=== PATIENT | male | born 1955 | race African-American/Black ===

== ENCOUNTER 2016-10-23 08:47 | Day surgery (SDC) | payer OTHER ==
[~2016-10-23 08:47] MED LIST: DIPHENHYDRAMINE HCL 50 MG/ML VIAL ONE; EPINEPHRINE INJ 1 MG/10 ML DISP.SYRIN ONE; FENTANYL CITRATE INJ/PF 100 MCG/2 ML AMPUL ONE; FLUMAZENIL INJ 0.5 MG/5 ML VIAL IV ONE; GLUCAGON,HUMAN RECOMB 1 MG INJ ONE; NALOXONE HCL INJ/PF 0.4 MG/1 ML SDV ONE; ONDANSETRON HCL INJ/PF 4 MG/2 ML SDV ONE
[2016-10-23] MEDS: MIDAZOLAM 2 MG/2 ML INJ ONE ×2 (09:48→09:52)
--- NOTE | 2016-10-23 10:11 | Operative Report ---
Operative Report DATE OF SURGERY: 10/23/16 Operative Report: The risks, benefits and alternatives of the procedure including risks of bleeding, perforation requiring surgery are explained to the patient detail and informed consent was obtained. Patient is placed in the left, lateral decubital position. Timeout was called. Conscious sedation medications are provided. A rectal examination was done which did not reveal any masses, tears or fissures. An Olympus videoscope was inserted into the patient's rectum. The scope was then carefully guided all the way to the cecum. The cecum was identified by the usual anatomical landmarks including the ileocecal valve as well as the appendiceal office. Photodocumentation was obtained. Prep was good. Scope was then sequentially pulled back. The rest segments of the colon including the ascending colon, hepatic flexure, transverse colon, splenic flexure, descending colon and finally to the rectosigmoid portions of the colon. Retroflexion maneuver was performed. PREOPERATIVE DIAGNOSIS: Follow-up on colitis POSTOPERATIVE DIAGNOSIS: Right side colon biopsy confirmation of resolution. Small polyp in the sigmoid biopsy forceps. No AVMs or diverticulosis seen. Internal hemorrhoids OPERATION: Colonoscopy with biopsy SURGEON: KANU BROCK ANESTHESIA: Moderate Sedation - 4 mg of Versed, 50 mcg fentanyl. Conscious sedation monitoring time 30 minutes. TISSUE REMOVED OR ALTERED: Specimens as indicated. COMPLICATIONS: None. ESTIMATED BLOOD LOSS: None. INTRAOPERATIVE FINDINGS: As described above. PROCEDURE: Patient tolerated procedure well. No immediate postprocedure complications are noted. Patient discharged in good condition. Discharge date 10/23/2016. Discharge diet: Regular. Discharge activity: Regular. 2-3 week follow-up to discuss findings. Patient is instructed to call the office or proceed to the emergency room should there be any further problems or questions. We will wait on biopsies.
[2016-10-23 11:13] VITALS: BP 107/61
== END 2016-10-23 11:27 | disposition home or self-care (01) ==
LOC: END 08:47
PROVIDERS: ATTEND Internal Medicine Gastroenterology
PROC: 0DBF8ZX Excision of Right Large Intestine, Via Natural or Artificial Opening Endoscopic, Diagnostic (ICD-10-PCS; 2016-10-23)
PROC: 0DBN8ZX Excision of Sigmoid Colon, Via Natural or Artificial Opening Endoscopic, Diagnostic (ICD-10-PCS; principal; 2016-10-23 09:30)
DX: K63.5 Polyp of colon (principal); K64.8 Other hemorrhoids; K62.5 Hemorrhage of anus and rectum; Z09 Encounter for follow-up examination after completed treatment for conditions other than malignant neoplasm; K21.9 Gastro-esophageal reflux disease without esophagitis; N40.0 Benign prostatic hyperplasia without lower urinary tract symptoms; E78.2 Mixed hyperlipidemia; I10 Essential (primary) hypertension; M47.9 Spondylosis, unspecified; F17.210 Nicotine dependence, cigarettes, uncomplicated; Z87.19 Personal history of other diseases of the digestive system; Z79.82 Long term (current) use of aspirin; Z79.899 Other long term (current) drug therapy
CPT/HCPCS: 45380; 88305 ×2; J2250; J3010; J0171; J1200; J1610; J2310; J2405; J3490

== ENCOUNTER → 2016-12-16 | Outpatient (CLI) | payer OTHER ==
[2016-12-17 08:44] LABS: CHOLESTEROL 156.34 mg/dL (0-200); Direct HDL 56 mg/dL (>40); TRIGLYCERIDES 67 mg/dL (<150)
[2016-12-17 08:48] LABS: ALANINE AMINOTRANSFERASE 42 U/L (21-72); ALBUMIN 4.3 g/dL (3.5-5.0); ALKALINE PHOSPHATASE 75 U/L (38-126); ANION GAP 10 (5-19); ASPARTATE AMINO TRANSFERASE 36 U/L (17-59); BILIRUBIN,DIRECT 0.4 mg/dL (0.0-0.4); BILIRUBIN,TOTAL 0.9 mg/dL (0.2-1.3); BLOOD UREA NITROGEN 16 mg/dL (7-20); CALCIUM 9.7 mg/dL (8.4-10.2); CARBON DIOXIDE 25 mmol/L (22-30); CHLORIDE 104 mmol/L (98-107); CREATININE RESULT 1.11 mg/dL (0.52-1.25); GLUCOSE 84 mg/dL (75-110); POTASSIUM 4.5 mmol/L (3.6-5.0); SODIUM 139.4 mmol/L (137-145); TOTAL PROTEIN 7.7 g/dL (6.3-8.2)
[2016-12-17 08:55] LABS: DIRECT LDL 70 mg/dL (<100)
== END ==
LOC: OD 09:22
PROVIDERS: ATTEND Internal Medicine Cardiovascular Disease
DX: Z79.899 Other long term (current) drug therapy (principal); E78.00 Pure hypercholesterolemia, unspecified; I10 Essential (primary) hypertension
CPT/HCPCS: 36415; 80048; 80061; 80076

== ENCOUNTER → 2017-04-11 | Outpatient (CLI) | payer OTHER ==
--- NOTE | 2017-04-11 12:37 | RADIOLOGY REPORT (SQ) ---
EXAM DESCRIPTION: HIP RIGHT AP/LATERAL COMPLETED DATE/TIME: 04/11/2017 9:02 am REASON FOR STUDY: OTHER INTERVERTEBRAL DISC DEGENERATION, LUMBOSACRAL REGION,RT HIP PAIN M25.551 PA IN IN RIGHT HIP M51.37 OTHER INTERVERTEBRAL DISC DEGENERATION, LUMBOSACRAL R COMPARISON: None. NUMBER OF VIEWS: Two views. TECHNIQUE: AP pelvis and additional frog-leg view of the right hip. LIMITATIONS: None. FINDINGS: MINERALIZATION: Normal. RIGHT HIP: No fracture or dislocation. No worrisome bone lesions. LEFT HIP: No fracture or dislocation. No worrisome bone lesions. PUBIS AND ISCHIUM: No fracture. PELVIS: No fracture. SACRUM: No fracture or dislocation. No worrisome bone lesions. LOWER LUMBAR SPINE: No fracture or dislocation. No worrisome bone lesions. No significant disc disea se. SOFT TISSUES: No findings. OTHER: No other significant finding. IMPRESSION: NEGATIVE STUDY OF THE RIGHT HIP. NO RADIOGRAPHIC EVIDENCE OF ACUTE INJURY. TECHNICAL DOCUMENTATION: JOB ID: [id number] [employer]- All Rights Reserved
--- NOTE | 2017-04-11 12:38 | RADIOLOGY REPORT (SQ) ---
EXAM DESCRIPTION: LUMBAR SPINE COMPLETE COMPLETED DATE/TIME: 04/11/2017 9:02 am REASON FOR STUDY: OTHER INTERVERTEBRAL DISC DEGENERATION, LUMBOSACRAL REGION,RT HIP PAIN M25.551 PA IN IN RIGHT HIP M51.37 OTHER INTERVERTEBRAL DISC DEGENERATION, LUMBOSACRAL R COMPARISON: None. NUMBER OF VIEWS: Five views including obliques. TECHNIQUE: AP, lateral, oblique, and sacral radiographic images acquired of the lumbar spine. LIMITATIONS: None. FINDINGS: MINERALIZATION: Normal. SEGMENTATION: Normal. No transitional anatomy. ALIGNMENT: Normal. VERTEBRAE: Maintained height. No fracture or worrisome bone lesion. DISCS: There is narrowing of the L5-S1 disc space and there is mild narrowing at L4-5. POSTERIOR ELEMENTS: Pedicles and facets are intact. No pars defect or posterior arch defects. HARDWARE: None in the spine. PARASPINAL SOFT TISSUES: Normal. PELVIS: Intact as visualized. No fractures or worrisome bone lesions. SI joints intact. OTHER: No other significant finding. IMPRESSION: Degenerative disc changes as described. TECHNICAL DOCUMENTATION: JOB ID: [id number]- All Rights Reserved
== END ==
LOC: OD 08:27
PROVIDERS: ATTEND Family Medicine
DX: M25.551 Pain in right hip (principal); M51.37 Other intervertebral disc degeneration, lumbosacral region
CPT/HCPCS: 72110

== ENCOUNTER → 2017-08-04 | Outpatient (CLI) | payer OTHER ==
[2017-08-04 09:32] LABS: ANION GAP 8 (5-19); BLOOD UREA NITROGEN 12 mg/dL (7-20); CALCIUM 9.8 mg/dL (8.4-10.2); CARBON DIOXIDE 30 mmol/L (22-30); CHLORIDE 104 mmol/L (98-107); CHOLESTEROL 160.45 mg/dL (0-200); GLUCOSE 96 mg/dL (75-110); SODIUM 141.9 mmol/L (137-145); TRIGLYCERIDES 79 mg/dL (<150)
[2017-08-04 09:36] LABS: ALANINE AMINOTRANSFERASE 36 U/L (21-72); ALBUMIN 4.2 g/dL (3.5-5.0); ALKALINE PHOSPHATASE 66 U/L (38-126); ASPARTATE AMINO TRANSFERASE 48 U/L (17-59); BILIRUBIN,DIRECT 0.1 mg/dL (0.0-0.4); BILIRUBIN,TOTAL 0.5 mg/dL (0.2-1.3); TOTAL PROTEIN 7.1 g/dL (6.3-8.2)
[2017-08-04 09:42] LABS: DIRECT LDL 75 mg/dL (<100)
== END ==
LOC: OD 07:26
PROVIDERS: ATTEND Internal Medicine Cardiovascular Disease
DX: I10 Essential (primary) hypertension (principal); E78.00 Pure hypercholesterolemia, unspecified
CPT/HCPCS: 36415; 80048; 80061; 80076

== ENCOUNTER → 2018-09-29 | Outpatient (CLI) | payer OTHER ==
[2018-09-29 12:51] LABS: ALANINE AMINOTRANSFERASE 36 U/L (21-72); ALBUMIN 4.2 g/dL (3.5-5.0); ALKALINE PHOSPHATASE 74 U/L (38-126); ANION GAP 11 (5-19); ASPARTATE AMINO TRANSFERASE 37 U/L (17-59); BILIRUBIN,DIRECT 0.3 mg/dL (0.0-0.4); BILIRUBIN,TOTAL 0.6 mg/dL (0.2-1.3); BLOOD UREA NITROGEN 15 mg/dL (7-20); CALCIUM 9.7 mg/dL (8.4-10.2); CARBON DIOXIDE 25 mmol/L (22-30); CHLORIDE 108 mmol/L (98-107); CHOLESTEROL 149.11 mg/dL (0-200); GLUCOSE 93 mg/dL (75-110); POTASSIUM 4.2 mmol/L (3.6-5.0); SODIUM 143.7 mmol/L (137-145); TOTAL PROTEIN 7.5 g/dL (6.3-8.2); TRIGLYCERIDES 57 mg/dL (<150)
[2018-09-29 13:02] LABS: DIRECT LDL 75 mg/dL (<100)
== END ==
LOC: OD 11:07
PROVIDERS: ATTEND Internal Medicine Cardiovascular Disease
DX: E78.00 Pure hypercholesterolemia, unspecified (principal); I10 Essential (primary) hypertension; Z79.899 Other long term (current) drug therapy
CPT/HCPCS: 36415; 80048; 80061; 80076

== ENCOUNTER → 2018-11-16 | Outpatient (CLI) | payer OTHER ==
--- NOTE | 2018-11-16 14:20 | RADIOLOGY REPORT (SQ) ---
EXAM DESCRIPTION: NM HIDA SCAN WITH CCK COMPLETED DATE/TIME: 11/16/2018 9:42 am REASON FOR STUDY: RUQ ABD PAIN (R10.11) R10.11 RIGHT UPPER QUADRANT PAIN COMPARISON: None. RADIONUCLIDE AND DOSE: DOSAGE RADIONUCLIDE: 5.3 millicuries Tc99m Mebrofenin. DOSAGE CCK: 1.8 micrograms. DOSAGE MORPHINE: Not required. The route of agent administration: Intravenous TECHNIQUE: Serial imaging right upper quadrant up to 60 minutes following injection of radionuclide. CCK injected after gallbladder visualized. LIMITATIONS: None. FINDINGS: LIVER: Normal visualization without areas of photopenia. INTRA AND EXTRAHEPATIC BILE DUCTS: Normal accumulation of activity. GALLBLADDER: Normal visualization. Calculated Ejection Fraction of 5%. Below the normal value of 35% or greater. PHYSICAL RESPONSE: Patients presenting complaint was not reproduced. OTHER: No other significant finding. IMPRESSION: LOW GALLBLADDER EJECTION FRACTION. EVIDENCE FOR BILIARY DYSKINESIS. NO CYSTIC OR COMMO N DUCT OBSTRUCTION. TECHNICAL DOCUMENTATION: JOB ID: [id number] [employer]- All Rights Reserved Reading location - IP/workstation name: [email or web address]
== END ==
LOC: RAD 07:15
PROVIDERS: ATTEND Family Medicine
DX: R10.11 Right upper quadrant pain (principal)
CPT/HCPCS: 78227; J2805; A9537; Q9969

== ENCOUNTER → 2018-12-18 | Outpatient (CLI) | payer OTHER ==
--- NOTE | 2018-12-18 16:49 | RADIOLOGY REPORT (SQ) ---
EXAM DESCRIPTION: CHEST PA/LATERAL COMPLETED DATE/TIME: 12/18/2018 4:36 pm REASON FOR STUDY: THORACIC RADICULOPATHY; COMPARISON: 09/10/2015. EXAM PARAMETERS: NUMBER OF VIEWS: two views TECHNIQUE: Digital Frontal and Lateral radiographic views of the chest acquired. RADIATION DOSE: NA LIMITATIONS: none FINDINGS: LUNGS AND PLEURA: No opacities, masses or pneumothorax. No pleural effusion. MEDIASTINUM AND HILAR STRUCTURES: No masses or contour abnormalities. HEART AND VASCULAR STRUCTURES: Heart normal size. No evidence for failure. BONES: No acute findings. HARDWARE: None in the chest. OTHER: No other significant finding. IMPRESSION: NO SIGNIFICANT RADIOGRAPHIC FINDING IN THE CHEST. TECHNICAL DOCUMENTATION: JOB ID: [id number] [employer]- All Rights Reserved Reading location - IP/workstation name: [email or web address]
--- NOTE | 2018-12-18 16:49 | RADIOLOGY REPORT (SQ) ---
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 NUMBER OF VIEWS: Two views. TECHNIQUE: AP and lateral radiographic images acquired of the thoracic spine. LIMITATIONS: None. FINDINGS: MINERALIZATION: Normal. ALIGNMENT: Normal. No scoliosis. VERTEBRAE: No fracture or bone lesion. Maintained height, normal segmentation. DISCS: No significant loss of height or significant narrowing. No large osteophytes. HARDWARE: None in the spine. MEDIASTINUM AND SOFT TISSUES: Normal heart size and aortic contour. No soft tissue abnormality. VISUALIZED LUNG PATTERSON: Clear. OTHER: No other significant finding. IMPRESSION: NO SIGNIFICANT RADIOGRAPHIC FINDING IN THE THORACIC SPINE. TECHNICAL DOCUMENTATION: JOB ID: [id number] [employer]- All Rights Reserved Reading location - IP/workstation name: [email or web address]
== END ==
LOC: OD 16:08
PROVIDERS: ATTEND Family Medicine
DX: M54.14 Radiculopathy, thoracic region (principal)
CPT/HCPCS: 71046; 72070

== ENCOUNTER 2018-12-24 11:42 | Day surgery (SDC) | payer OTHER ==
[2018-12-24] MEDS ORDERED: ONDANSETRON HCL INJ/PF 4 MG/2 ML SDV ONE (11:58)
[2018-12-24] MEDS ORDERED: DIPHENHYDRAMINE HCL 50 MG/ML VIAL ONE (11:58)
[2018-12-24] MEDS ORDERED: NALOXONE HCL INJ/PF 0.4 MG/1 ML SDV ONE (11:58)
[2018-12-24] MEDS ORDERED: GLUCAGON,HUMAN RECOMB 1 MG INJ ONE (11:59)
[2018-12-24] MEDS ORDERED: FLUMAZENIL INJ 0.5 MG/5 ML VIAL ONE (11:59)
[2018-12-24] MEDS ORDERED: EPINEPHRINE INJ 1 MG/10 ML DISP.SYRIN ONE (11:59)
[2018-12-24] MEDS: MIDAZOLAM 2 MG/2 ML INJ ONE ×2 (12:22→12:34)
[2018-12-24] MEDS: FENTANYL CITRATE INJ/PF 100 MCG/2 ML AMPUL ONE ×2 (12:24→12:29)
--- NOTE | 2018-12-24 12:47 | Operative Report ---
Operative Report DATE OF SURGERY: 12/24/18 Operative Report: The risks, benefits and alternatives of the procedure including the risk of bleeding, perforation requiring surgery have been explained to the patient in detail and informed consent has been obtained. Patient is taken back to the endoscopy suite and placed in a left, lateral decubital position. Timeout was called. Propofol medication is administered. Rectal examination is done which did not reveal any masses, tears or fissures. An Olympus videoscope was introduced into the patient's rectum. The scope was then carefully advanced all the way to the cecum. The cecum was identified by the usual anatomical landmarks of the ileocecal valve as well as the appendiceal office. Of note patient does have a somewhat redundant colon. The scope was then sequentially pulled back via the various segments of the colon including the ascending colon, hepatic flexure, transverse colon, splenic flexure, descending colon finding to the rectosigmoid portions of the colon. Retroflexion maneuvers performed. PREOPERATIVE DIAGNOSIS: Change in bowel habits POSTOPERATIVE DIAGNOSIS: Right colon inflammation status post biopsy OPERATION: Colonoscopy with biopsy SURGEON: KANU BROCK ANESTHESIA: Moderate Sedation - 3 mg of Versed, 75 mcg of fentanyl. Conscious sedation monitoring time 30 minutes. TISSUE REMOVED OR ALTERED: As noted above. COMPLICATIONS: None. ESTIMATED BLOOD LOSS: None. INTRAOPERATIVE FINDINGS: As noted above. PROCEDURE: Patient tolerated the procedure well. No immediate postprocedure complications are noted. Patient is discharged in good condition. Discharge date 12/24/2018. Discharge diet: Regular. Discharge activity: Regular. 2 to 3-week follow-up to discuss findings. Patient is instructed to call the office or proceed to the emergency room should there be any further questions. Wait on the pathology.
[2018-12-24 13:37] VITALS: BP 109/73
== END 2018-12-24 13:50 | disposition home or self-care (01) ==
LOC: END 11:42
PROVIDERS: ATTEND Internal Medicine Gastroenterology
DX: K52.9 Noninfective gastroenteritis and colitis, unspecified (principal); K21.9 Gastro-esophageal reflux disease without esophagitis; I10 Essential (primary) hypertension; E78.2 Mixed hyperlipidemia; F17.210 Nicotine dependence, cigarettes, uncomplicated; N40.0 Benign prostatic hyperplasia without lower urinary tract symptoms; Z79.899 Other long term (current) drug therapy
CPT/HCPCS: 88305 ×2; J2250; J3010; J0171; J1200; J1610; J2310; J2405; J3490

== ENCOUNTER → 2019-05-17 | Outpatient (CLI) | payer OTHER ==
[2019-05-17 08:42] LABS: ALBUMIN 4.1 g/dL (3.5-5.0); ALKALINE PHOSPHATASE 70 U/L (38-126); ANION GAP 9 (5-19); ASPARTATE AMINO TRANSFERASE 33 U/L (17-59); BILIRUBIN,DIRECT 0.2 mg/dL (0.0-0.4); BILIRUBIN,TOTAL 0.8 mg/dL (0.2-1.3); BLOOD UREA NITROGEN 13 mg/dL (7-20); CALCIUM 9.4 mg/dL (8.4-10.2); CARBON DIOXIDE 26 mmol/L (22-30); CHLORIDE 107 mmol/L (98-107); CHOLESTEROL 178.47 mg/dL (0-200); GLUCOSE 91 mg/dL (75-110); POTASSIUM 4.1 mmol/L (3.6-5.0); TOTAL PROTEIN 7.6 g/dL (6.3-8.2); TRIGLYCERIDES 68 mg/dL (<150)
[2019-05-17 08:53] LABS: DIRECT LDL 103 mg/dL (<100)
== END ==
LOC: OD 07:12
PROVIDERS: ATTEND Physician Assistant
DX: E78.00 Pure hypercholesterolemia, unspecified (principal); I10 Essential (primary) hypertension; Z79.899 Other long term (current) drug therapy
CPT/HCPCS: 36415; 80048; 80061; 80076

== ENCOUNTER 2019-05-18 01:59 | Emergency (ER) | payer OTHER ==
[2019-05-18 02:32] LABS: ABSOLUTE BASOPHILS # (AUTO) 0.1 10^3/uL (0.0-0.2); ABSOLUTE EOSINOPHILS # (AUTO) 0.2 10^3/uL (0.0-0.6); ABSOLUTE LYMPHOCYTES (AUTO) 2.7 10^3/uL (0.5-4.7); ABSOLUTE NEUT (AUTO) 2.9 10^3/uL (1.7-8.2); BASOPHILS % (AUTO) 1.4 % (0-2); EOSINOPHILS % (AUTO) 2.8 % (0-6); HEMATOCRIT 43.8 % (37.9-51.0); LYMPHOCYTES % (AUTO) 39.4 % (13-45); MEAN CORPUSCULAR HEMOGLOBIN 30.2 pg (27.0-33.4); MEAN CORPUSCULAR HGB CONC 34.2 g/dL (32.0-36.0); MEAN CORPUSCULAR VOLUME 88 fl (80-97); MONOCYTES % (AUTO) 13.9 % (3-13); PLATELET COUNT 234 10^3/uL (150-450); RED BLOOD COUNT 4.97 10^6/uL (4.35-5.55); SEGMENTED NEUTROPHILS % (AUTO) 42.5 % (42-78); TOTAL CELLS COUNTED % (AUTO) 100 %; WHITE BLOOD COUNT 6.9 10^3/uL (4.0-10.5)
[2019-05-18 02:54] LABS: ALBUMIN 4.1 g/dL (3.5-5.0); ALKALINE PHOSPHATASE 69 U/L (38-126); ANION GAP 9 (5-19); ASPARTATE AMINO TRANSFERASE 35 U/L (17-59); BILIRUBIN,DIRECT 0.2 mg/dL (0.0-0.4); BILIRUBIN,TOTAL 0.6 mg/dL (0.2-1.3); BLOOD UREA NITROGEN 16 mg/dL (7-20); CALCIUM 9.6 mg/dL (8.4-10.2); CARBON DIOXIDE 27 mmol/L (22-30); CHLORIDE 105 mmol/L (98-107); GLUCOSE 92 mg/dL (75-110); POTASSIUM 4.2 mmol/L (3.6-5.0); TOTAL PROTEIN 7.7 g/dL (6.3-8.2)
[2019-05-18] MEDS ORDERED: ASPIRIN 81 MG TABLET, CHEWABLE PO ONE (04:39)
[2019-05-18] MEDS ORDERED: FAMOTIDINE 20 MG TABLET PO ONE (04:40)
--- NOTE | 2019-05-18 04:45 | ER Document Report ---
ED General - General Chief Complaint: High Blood Pressure Stated Complaint: CHEST PAIN/BLOOD PRESSURE PROBLEMS,HEADACHE Time Seen by Provider: 05/18/19 04:22 Primary Care Provider: NICOLA MCNALLY DO [Primary Care Provider] - Follow up as needed Mode of Arrival: Ambulatory Information source: Patient Notes: 63-year-old male presented to ED for complaint of chest pain with aching in the arms and legs. He denies any shortness of breath nausea or vomiting. He states he has been having chest pain about once a week for the last several months. His last stress test was in 2017. He does have an appointment with Dr. Jewell on 05/24/2019. TRAVEL OUTSIDE OF THE [place] IN LAST 30 DAYS: No - HPI Onset: Yesterday Onset/Duration: Better Quality of pain: Dull Severity: Mild Pain Level: 1 Associated symptoms: Chest pain, Other - Cramping of arms and legs. denies: Nonproductive cough, Productive cough, Fever, Nausea, Vomiting Exacerbated by: Denies Relieved by: Denies Similar symptoms previously: Yes Recently seen / treated by doctor: Yes - Related Data Allergies/Adverse Reactions: No Known Allergies Allergy (Verified 05/18/19 02:12) Home Medications: micardis, metoprolol, atorvastatin, restasis, telmisartan, nexium, cilais, methocarbamol. Past Medical History - General Information source: Patient - Social History Smoking Status: Never Smoker Frequency of alcohol use: Occasional Drug Abuse: None Lives with: Family Family History: CAD, CVA Patient has suicidal ideation: No Patient has homicidal ideation: No - Past Medical History Cardiac Medical History: Reports: Hx Coronary Artery Disease, Hx Hypercholest erolemia, Hx Hypertension Pulmonary Medical History: Reports: Hx Sleep Apnea EENT Medical History: Reports: None Neurological Medical History: Reports: None Endocrine Medical History: Reports: None Renal/ Medical History: Reports: None Malignancy Medical History: Reports None GI Medical History: Reports: Hx Gastroesophageal Reflux Disease, Hx Colonoscopy, Hx Endoscopy, Other - Gallbladder disease, hemorrhoids Musculoskeletal Medical History: Reports Hx Arthritis, Reports Hx Musculoskeletal Deformity - Back pain, Reports Hx Musculoskeletal Trauma - Right torn meniscus Skin Medical History: Reports None Psychiatric Medical History: Reports: None Traumatic Medical History: Reports: None Infectious Medical History: Reports: None Surgical Hx: Negative Past Surgical History: Reports: None - Immunizations Hx Diphtheria, Pertussis, Tetanus Vaccination: Yes History of Pneumococcal Vaccine: Yes - July 2018 History of Influenza Vaccine for 02/2019 - 07/2019 Season: Yes - March 07, 2019 Review of Systems - Review of Systems Constitutional: No symptoms reported EENT: No symptoms reported Cardiovascular: Chest pain Respiratory: No symptoms reported Gastrointestinal: No symptoms reported Genitourinary: No symptoms reported Male Genitourinary: No symptoms reported Musculoskeletal: No symptoms reported Skin: No symptoms reported Hematologic/Lymphatic: No symptoms reported Neurological/Psychological: No symptoms reported -: Yes All other systems reviewed and negative Physical Exam - Vital signs Vitals: Temp Pulse Resp BP Pulse Ox 98.0 F 72 16 147/90 H 97 05/18/19 02:07 05/18/19 02:07 05/18/19 02:07 05/18/19 02:07 05/18/19 02:07 Interpretation: Normal - General General appearance: Appears well, Alert - HEENT Head: Normocephalic, Atraumatic Eyes: Normal Pupils: PERRL - Respiratory Respiratory status: No respiratory distress Chest status: Nontender Breath sounds: Normal Chest palpation: Normal - Cardiovascular Rhythm: Regular Heart sounds: Normal auscultation Murmur: No - Abdominal Inspection: Normal Distension: No distension Bowel sounds: Normal Tenderness: Nontender Organomegaly: No organomegaly - Back Back: Normal, Nontender - Extremities General upper extremity: Normal inspection, Nontender, Normal color, Normal ROM, Normal temperature General lower extremity: Normal inspection, Nontender, Normal color, Normal ROM, Normal temperature, Normal weight bearing. No: Vianney's sign - Neurological Neuro grossly intact: Yes Cognition: Normal Orientation: AAOx4 [place] Coma Scale Eye Opening: Spontaneous [place] Coma Scale Verbal: Oriented [place] Coma Scale Motor: Obeys Commands Krystle Coma Scale Total: 15 Speech: Normal Motor strength normal: LUE, RUE, LLE, RLE Sensory: Normal - Psychological Associated symptoms: Normal affect, Normal mood - Skin Skin Temperature: Warm Skin Moisture: Dry Skin Color: Normal Course - Re-evaluation Re-evalutation: 05/18/19 08:33 Patient was discharged after he had 2- troponins. He has been seen multiple times for chest pain. He does have cardiac and primary care follow-up. He has a negative stress test in 2017. He has been to the specialist field engineer multiple times for this chest pain and each time his work-up is negative. I have a low suspicion for a cardiac event today. I have structured him to return immediately for any increase in pain. He did not have any chest pain at discharge. - Vital Signs Vital signs: Temp Pulse Resp BP Pulse Ox 98.2 F 58 L 20 130/85 H 98 05/18/19 07:49 05/18/19 07:49 05/18/19 06:59 05/18/19 07:49 05/18/19 07:49 - Laboratory Result Diagrams: 05/18/19 02:15 05/18/19 02:15 Laboratory results interpreted by me: 05/18/19 02:15 [place] % (Auto) 13.9 H - Diagnostic Test Radiology reviewed: Image reviewed, Reports reviewed Discharge - Discharge Clinical Impression: Chest pain Qualifiers: Chest pain type: unspecified Qualified Code(s): R07.9 - Chest pain, unspecified HTN (hypertension) Qualifiers: Hypertension type: unspecified Qualified Code(s): I10 - Essential (primary) hypertension Condition: Stable Disposition: HOME, SELF-CARE Additional Instructions: CHEST PAIN OF UNCLEAR CAUSE: The exact cause of your chest pain isn't clear. Fortunately, there is no evidence of a dangerous medical condition. Further testing may be required to find the source of the pain. Most often, we find that this pain is coming from the chest wall -- the muscles or rib joints in the chest. But chest pain can come from the lung and lung lining, the esophagus, the heart valves or heart lining, and even the stoma ch or gallbladder. Rest. Eat lightly until the pain is gone. We may prescribe medicine for pain and inflammation. You should call the physician immediately if the pain radiates to the shou lder, jaw or arms; if you start to run a fever or develop a cough; or if you develop shortness of breath, or other new or alarming symptoms. NORMAL EXAM AND WORKUP: At this time, your examination and workup show no significant abnormality. No significant abnormal physical findings were noted. All laboratory, EKG, and imaging (x-ray, CT scans, ultrasound) studies that were ordered show no significant abnormality. Although your examination and all studies that were ordered showed no significant abnormal finding, there are no examinations and no studies that are 100% accurate. There is always the possibility that some abnormality could exist and not be detected with physical examination or within the limits and capabilities of laboratory and other studies. You should return or follow up as you were instructed on your visit today for further evaluation if your symptoms do not resolve. ASPIRIN: Aspirin has been shown to have a beneficial effect on blood circulation by reducing the clotting effect of platelets in the blood. These beneficial effects can be achieved by taking just a single baby (81 mg) aspirin a day. It is recommended that any person over the age of forty take a single baby aspirin every day for heart and brain circulation, unless you are allergic to aspirin or have some significant bleeding disorder. It is strongly recommended that people who have proven cardiac or blood circulation disturbances should take a baby aspirin every day. NITRATES: Nitroglycerin and related longer-acting nitrate medications are used to prevent or treat attacks of angina. These medicines dilate blood vessels, decreasing the work of the heart, and improving its supply of oxygen. Many different forms are available, including sublingual tablets (used under the tongue), sprays, skin patches, and long-acting pills. If the particular form of medication you have been given is not working well for you, contact your doctor. Long-acting forms: Take exactly as prescribed. Sudden stopping of medication can provoke increased attacks. Sublingual tabs or spray: A headache will usually occur with use. Sit or lie while waiting for the pain to go away. If angina doesn't respond to three doses (five minutes apart), call for emergency assistance. FOLLOW-UP CARE: If you have been referred to a physician for follow-up care, call the [facility] office for an appointment as you were instructed or within the next two days. If you experience worsening or a significant change in your symptoms, notify the physician immediately or return to the Emergency Department at any time for re-evaluation. Forms: Elevated Blood Pressure Referrals: NICOLA MCNALLY DO [Primary Care Provider] - Follow up as needed
--- NOTE | 2019-05-18 07:06 | RADIOLOGY REPORT (SQ) ---
EXAM DESCRIPTION: PA and lateral chest x-rays at 0524 hours on 05/18/2019. CLINICAL HISTORY: 63 years, Male, chest pain COMPARISON: None. FINDINGS: PA and lateral chest radiographs were performed. The lungs are well expanded and clear. The costophrenic sulci are sharp. The cardiac silhouette, hilar regions, trachea, soft tissues and bony structures are unremarkable. IMPRESSION: No acute cardiopulmonary disease.
[2019-05-18 07:58] VITALS: BP 130/85
--- NOTE | 2019-05-18 11:24 | EKG REPORT ---
SEVERITY:- BORDERLINE ECG - SINUS RHYTHM PROBABLE LEFT ATRIAL ABNORMALITY : Confirmed by: Marion Barker MD 18-May-2019 11:23:38
== END 2019-05-18 07:58 | disposition home or self-care (01) ==
LOC: ER 01:59
DX: R07.9 Chest pain, unspecified (principal); I10 Essential (primary) hypertension; R25.2 Cramp and spasm; I25.10 Atherosclerotic heart disease of native coronary artery without angina pectoris; E78.00 Pure hypercholesterolemia, unspecified; K21.9 Gastro-esophageal reflux disease without esophagitis; Z79.899 Other long term (current) drug therapy
CPT/HCPCS: 36415; 71046; 80053; 84484; 85025; 93005; 93010; 99285

== ENCOUNTER 2019-07-16 08:24 | Day surgery (SDC) | payer OTHER ==
[~2019-07-16 08:24] MED LIST changes: -DIPHENHYDRAMINE HCL 50 MG/ML VIAL ONE; -EPINEPHRINE INJ 1 MG/10 ML DISP.SYRIN ONE; -FENTANYL CITRATE INJ/PF 100 MCG/2 ML AMPUL ONE; -FLUMAZENIL INJ 0.5 MG/5 ML VIAL IV ONE; -GLUCAGON,HUMAN RECOMB 1 MG INJ ONE; +LIDOCAINE 2% INJ-PF (20 MG/ML) 10 ML AMPUL ONE; -NALOXONE HCL INJ/PF 0.4 MG/1 ML SDV ONE; -ONDANSETRON HCL INJ/PF 4 MG/2 ML SDV ONE; +PROPOFOL INJ 200 MG/20 ML VIAL IV ONE
[2019-07-16 11:08] VITALS: BP 101/65
--- NOTE | 2019-07-16 11:15 | Operative Report ---
Operative Report DATE OF SURGERY: 07/16/19 Operative Report: The risks benefits and alternatives of the procedure explained to the patient in detail and informed consent is obtained.A GIF Olympus video scope was inserted into the patient's mouth and hypopharynx, the esophagus is identified intubated and insufflated ,the scope was then advanced through the esophagus stomach and duodenum, retroflexion maneuver is done the esophagus stomach and first and second portions of the duodenum examined PREOPERATIVE DIAGNOSIS: Epigastric pain rule out peptic ulcer disease POSTOPERATIVE DIAGNOSIS: Gastritis status post biopsy rule out H. pylori OPERATION: EGD with biopsy SURGEON: KANU BROCK ANESTHESIA: LMAC TISSUE REMOVED OR ALTERED: As noted above. COMPLICATIONS: None. ESTIMATED BLOOD LOSS: None. INTRAOPERATIVE FINDINGS: As noted above. PROCEDURE: Patient tolerated the procedure well. No immediate postprocedure complications are noted. Patient is discharged in good condition. Discharge date 07/16/2019. Discharge diet: Regular. Discharge activity: Regular. 2 to 3-week follow-up to discuss findings. Patient is instructed to call the office or proceed to the emergency room should there be any further problems or questions. Wait on the pathology.
== END 2019-07-16 11:09 | disposition home or self-care (01) ==
LOC: END 08:24
PROVIDERS: ATTEND Internal Medicine Gastroenterology
DX: K29.50 Unspecified chronic gastritis without bleeding (principal); I10 Essential (primary) hypertension; E78.5 Hyperlipidemia, unspecified; F17.210 Nicotine dependence, cigarettes, uncomplicated; Z79.82 Long term (current) use of aspirin; Z79.899 Other long term (current) drug therapy; Z88.8 Allergy status to other drugs, medicaments and biological substances; I20.9 Angina pectoris, unspecified; E78.2 Mixed hyperlipidemia; N40.0 Benign prostatic hyperplasia without lower urinary tract symptoms
CPT/HCPCS: 43239; 88305 ×2; 00731; J2704; J3490; 731

== ENCOUNTER → 2019-10-05 | Outpatient (CLI) | payer OTHER ==
[2019-10-05 08:32] LABS: ALBUMIN 4.3 g/dL (3.5-5.0); ALKALINE PHOSPHATASE 82 U/L (38-126); ANION GAP 7 (5-19); ASPARTATE AMINO TRANSFERASE 38 U/L (17-59); BILIRUBIN,TOTAL 0.8 mg/dL (0.2-1.3); BLOOD UREA NITROGEN 14 mg/dL (7-20); CALCIUM 9.4 mg/dL (8.4-10.2); CARBON DIOXIDE 26 mmol/L (22-30); CHLORIDE 105 mmol/L (98-107); GLUCOSE 91 mg/dL (75-110); POTASSIUM 4.2 mmol/L (3.6-5.0); TOTAL PROTEIN 7.7 g/dL (6.3-8.2); TRIGLYCERIDES 86 mg/dL (<150)
[2019-10-05 08:43] LABS: DIRECT LDL 60 mg/dL (<100)
== END ==
LOC: OD 07:10
PROVIDERS: ATTEND Internal Medicine Cardiovascular Disease
DX: E78.00 Pure hypercholesterolemia, unspecified (principal); I10 Essential (primary) hypertension; Z79.899 Other long term (current) drug therapy
CPT/HCPCS: 36415; 80048; 80061; 80076

== ENCOUNTER → 2020-02-16 | Outpatient (CLI) | payer OTHER ==
--- NOTE | 2020-02-16 15:14 | RADIOLOGY REPORT (SQ) ---
EXAM DESCRIPTION: VENOUS BILATERAL LOWER IMAGES COMPLETED DATE/TIME: 02/16/2020 3:00 pm REASON FOR STUDY: BLE PAIN M79.661 PAIN IN RIGHT LOWER LEG M79.662 PAIN IN LEFT LOWER LEG COMPARISON: None. TECHNIQUE: Dynamic and static lazaro scale and color images acquired of both lower extremity venous sy stems. Selected spectral images acquired with additional compression and augmentation maneuvers. Imag es stored on PACS. LIMITATIONS: None. FINDINGS: RIGHT LEG COMMON FEMORAL AND FEMORAL: Normal phasicity, compression and augmentation. No visualized echogenic m aterial on lazaro scale. No defects on color images. POPLITEAL: Normal compression and augmentation. No visualized echogenic material on lazaro scale. No de fects on color images. CALF VESSELS: Normal compression and augmentation. No visualized echogenic material on lazaro scale. No defects on color image. GSV AND SSV: Normal compression. No visualized echogenic material on lazaro scale. No defects on color images. ANY DEEP VENOUS INSUFFICIENCY: Not evaluated. ANY EVIDENCE OF POPLITEAL CYST: No. OTHER: No other significant finding. LEFT LEG COMMON FEMORAL AND FEMORAL: Normal phasicity, compression and augmentation. No visualized echogenic m aterial on lazaro scale. No defects on color images. POPLITEAL: Normal compression and augmentation. No visualized echogenic material on lazaro scale. No de fects on color images. CALF VESSELS: Normal compression and augmentation. No visualized echogenic material on lazaro scale. No defects on color images. GSV AND SSV: Normal compression. No visualized echogenic material on lazaro scale. No defects on color images. ANY DEEP VENOUS INSUFFICIENCY: Not evaluated. ANY EVIDENCE POPLITEAL CYST: No. OTHER: No other significant finding. IMPRESSION: NO EVIDENCE DVT OR SVT IN EITHER LEG. TECHNICAL DOCUMENTATION: JOB ID: [id number] [place]-[id number] 2010 [employer]- All Rights Reserved Reading location - IP/workstation name: [email or web address]
== END ==
LOC: SP 12:56
PROVIDERS: ATTEND Family Medicine
DX: M79.661 Pain in right lower leg (principal); M79.662 Pain in left lower leg
CPT/HCPCS: 93970

== ENCOUNTER → 2020-05-25 | Outpatient (CLI) | payer OTHER ==
--- OUTSIDE RECORDS SUMMARY | 2020-05-25 07:56 | XMS REPORT ---
:1955 [facility] [address] [place] [address] Care Team Providers Name Role Phone Rjei Attending Clinician Unavailable Reji Attending Clinician Unavailable Allergies, Adverse Reactions, Alerts Allergy Name Allergy Status Severity Reaction(s) Onset Inactive Treat ing Comments Type Date Date Clinician LISINOPRIL Drug Active U Swelling 2017-10 allergy -07 00:00:0 0 Medications Ordered Filled Start Stop Current Ordering Indication Dosage Frequency Signature Comments Components Medication Medication Date Date Medication? Clinician (SIG) Name Name methocarbam No 1 methocarba ol 750 mg 3-07 mol 750 mg tablet 1 00:00: tablet 1 tablet as 00 tablet as needed by needed by oral route. oral route. telmisartan No 1mg Q1D telmisarta 20 mg 7-09 n 20 mg tablet 1 00:00: tablet 1 mg every 00 mg every day by oral day by route. oral route. Cialis 20 No 1 Cialis 20 mg tablet 6-29 mg tablet 1 tablet as 00:00: 1 tablet needed by 00 as needed oral route. by oral route. clobetasol No clobetasol 0.05 % 5-04 0.05 % topical 00:00: topical cream 00 cream ezetimibe No 10mg ezetimibe 10 mg 10 mg tablet 10 tablet 10 mg by oral mg by oral route. route. aspirin 81 No 81mg BID aspirin 81 mg mg tablet,sam tablet,del yed release ayed 81 mg by release 81 oral route. mg by oral route. Nexium 40 No Nexium 40 mg mg capsule,del capsule,de ayed layed release release Parker 5 No Parker 5 mg-325 mg mg-325 mg tablet TAKE tablet 1 TAB PO Q TAKE 1 TAB 6 HRS X 3 PO Q 6 HRS DAYS, THEN X 3 DAYS, 1 TAB PO Q THEN 1 TAB 8 HRS X 3 PO Q 8 HRS DAYS, THEN X 3 DAYS, 1 TAB PO Q THEN 1 TAB 12 HRS X 1 PO Q 12 DAY PRN HRS X 1 POST OP DAY PRN PAIN POST OP PAIN esomeprazol No 40mg esomeprazo e magnesium le 40 mg magnesium capsule,del 40 mg ayed capsule,de release 40 layed mg by oral release 40 route. mg by oral route. metoprolol No 25mg BID metoprolol succinate succinate ER 25 mg ER 25 mg tablet,exte tablet,ext nded ended release 24 release 24 hr 25 mg hr 25 mg twice a day twice a by oral day by route. oral route. Restasis No 1[drp] BID Restasis 0.05 % eye 0.05 % eye drops in a drops in a dropperette dropperett 1 [drp] e 1 [drp] twice a day twice a by day by ophthalmic ophthalmic route. route. telmisartan No 20mg telmisarta 20 mg n 20 mg tablet 20 tablet 20 mg by oral mg by oral route. route. atorvastati No 40mg Q1D atorvastat n 40 mg in 40 mg tablet 40 tablet 40 mg by oral mg by oral route. route. Problems This patient has no known problems. Procedures Procedure Date / Time Performed Performing Clinician Jennifer miranda Knee Arthroscopy (Surg) 2019-12-10 00:00:00 XR, knee 2019-09-29 00:00:00 knee arthroscopy (SURG) 2019-09-29 00:00:00 Other 2019-05-05 00:00:00 OFFICE/OUTPATIENT VISIT EST 2018-12-14 10:00:00 Colonoscopy 2018-11-02 00:00:00 OFFICE/OUTPATIENT VISIT EST 2018-10-19 09:00:00 OFFICE/OUTPATIENT VISIT EST 2017-12-29 13:00:00 OFFICE/OUTPATIENT VISIT EST 2017-10-03 09:30:00 Colonoscopy 2016-10-03 00:00:00 Colonoscopy 2013-11-02 00:00:00 Results Test Description Test Time Test Comments Text Results Atomic Results Result Comments TSH W/REFLEX TO FT4 2019-11-09 09:19:00 1.81 PSA, TOTAL 2019-11-09 09:19:00 0.8 TESTOSTERONE, FREE (DIALYSIS), TOTAL (MS) AND SEX HORMONE 11-08 09:19:00 BINDING GLOBULIN Test Item Value Reference Range Comments TESTOSTERONE, FREE (test code = 23398515) 76.6 pg/mL 35.0-1 55.0 TESTOSTERONE, TOTAL, MS (test code = 63204123) 507 ng/dL 2 50-1100 SEX HORMONE BINDING GLOBULIN (test code = 83896055) 45 nmol/L 22-77 LIPID PANEL WITH REFLEX TO DIRECT [id number] 09:19:00 Test Item Value Reference Range Comments HDL CHOLESTEROL (test code = 28284086) 55 mg/dL > OR = 40 LDL-CHOLESTEROL (test code = 61775333) 56 mg/dL (calc) CHOL/HDLC RATIO (test code = 12246342) 2.3 (calc) <5.0 CHOLESTEROL, TOTAL (test code = 63834233) 125 mg/dL <200 NON HDL CHOLESTEROL (test code = 18141152) 70 mg/dL (calc) <130 TRIGLYCERIDES (test code = 25957403) 56 mg/dL <150 CBC (H/H, RBC, INDICES, WBC, PLT)2019-11-09 09:19:00 Test Item Value Reference Range Comments HEMATOCRIT (test code = 60851450) 46.3 % 38.5-50.0 MPV (test code = 96431033) 9.5 fL 7.5-12.5 WHITE BLOOD CELL COUNT (test code = 4.4 Thousand/uL 3.8-10.8 71307804) PLATELET COUNT (test code = 06839064) 275 Thousand/uL 140-400 MCH (test code = 59039019) 29.1 pg 27.0-33.0 MCV (test code = 32145155) 88.5 fL 80.0-100.0 MCHC (test code = 52231267) 32.8 g/dL 32.0-36.0 RED BLOOD CELL COUNT (test code = 50863161) 5.23 Million/uL 4.20 -5.80 RDW (test code = 99706119) 12.1 % 11.0-15.0 HEMOGLOBIN (test code = 44658884) 15.2 g/dL 13.2-17.1 COMPREHENSIVE METABOLIC [id number] 09:19:00 Test Item Value Reference Range Comments CHLORIDE (test code = 82515230) 106 mmol/L 98-110 SODIUM (test code = 35306875) 140 mmol/L 135-146 ALBUMIN/GLOBULIN RATIO (test code = 1.2 (calc) 1.0-2.5 74791867) UREA NITROGEN (BUN) (test code = 13 mg/dL 7-25 97940089) ALT (test code = 03529048) 27 U/L 9-46 CREATININE (test code = 17597704) 1.25 mg/dL 0.70-1.25 AST (test code = 47848601) 25 U/L 10-35 ALKALINE PHOSPHATASE (test code = 66 U/L 35-144 64002662) BUN/CREATININE RATIO (test code = NOT APPLICABLE (calc) 6-22 76845106) PROTEIN, TOTAL (test code = 54340174) 7.4 g/dL 6.1-8.1 BILIRUBIN, TOTAL (test code = 0.7 mg/dL 0.2-1.2 24220586) eGFR NON-AFR. TURK[place] (test code = 61 mL/min/1.73m2 > OR = 60 74121175) ALBUMIN (test code = 71207911) 4.1 g/dL 3.6-5.1 eGFR (test code = 71 mL/min/1.73m2 > OR = 60 28250265) CARBON DIOXIDE (test code = 73375258) 30 mmol/L 20-32 POTASSIUM (test code = 91744790) 4.4 mmol/L 3.5-5.3 CALCIUM (test code = 10608554) 9.4 mg/dL 8.6-10.3 GLOBULIN (test code = 40433252) 3.3 g/dL (calc) 1.9-3.7 GLUCOSE (test code = 32671500) 95 mg/dL 65-99 SARS-CoV-2 RNA Resp Ql [id number] 00:00:00 Test Item Value Reference Range Comments SARS-CoV-2 RNA Resp Ql Negative [place] [facility] Case ID: NEFTALI+probe (test code = 138483155 56209-1) PSA, [id number] 10:46:000.8LIPID PANEL WITH REFLEX TO DIRECT [id number] 09:29:00 Test Item Value Reference Range Comments NON HDL CHOLESTEROL (test code = 98360890) 102 mg/dL (calc) <130 CHOLESTEROL, TOTAL (test code = 38433473) 158 mg/dL <200 HDL CHOLESTEROL (test code = 55375532) 56 mg/dL >40 LDL-CHOLESTEROL (test code = 88980281) 88 mg/dL (calc) TRIGLYCERIDES (test code = 47048304) 54 mg/dL <150 CHOL/HDLC RATIO (test code = 63249594) 2.8 (calc) <5.0 COMPREHENSIVE METABOLIC [id number] 09:29:00 Test Item Value Reference Range Comments eGFR (test code = 79 mL/min/1.73m2 > OR = 60 00895652) ALBUMIN (test code = 88853247) 4.1 g/dL 3.6-5.1 ALKALINE PHOSPHATASE (test code = 63 U/L 40-115 70654396) GLOBULIN (test code = 66041942) 3.0 g/dL (calc) 1.9-3.7 ALT (test code = 91389021) 15 U/L 9-46 SODIUM (test code = 79015056) 138 mmol/L 135-146 BUN/CREATININE RATIO (test code = NOT APPLICABLE (calc) 6-22 53182364) CARBON DIOXIDE (test code = 37050371) 26 mmol/L 20-32 CALCIUM (test code = 17796169) 9.3 mg/dL 8.6-10.3 CHLORIDE (test code = 90686583) 106 mmol/L 98-110 eGFR NON-AFR. TURKISH (test code = 68 mL/min/1.73m2 > OR = 60 49582474) CREATININE (test code = 82888205) 1.15 mg/dL 0.70-1.25 UREA NITROGEN (BUN) (test code = 21 mg/dL 7-25 21618755) BILIRUBIN, TOTAL (test code = 0.5 mg/dL 0.2-1.2 33269629) PROTEIN, TOTAL (test code = 52815258) 7.1 g/dL 6.1-8.1 AST (test code = 79842106) 20 U/L 106 POTASSIUM (test code = 56070343) 4.0 mmol/L 3.5-5.3 ALBUMIN/GLOBULIN RATIO (test code = 1.4 (calc) 1.0-2.5 78491014) GLUCOSE (test code = 99837278) 93 mg/dL 65-99 [id number] 09:29:000.76CBC (INCLUDES DIFF/PLT)2018-10-19 09:29:00 Test Item Value Reference Range Comments NEUTROPHILS (test code = 27340615) 45.8 % PLATELET COUNT (test code = 63945148) 262 Thousand/uL 140-400 RED BLOOD CELL COUNT (test code = 29868110) 4.95 Million/uL 4.20 -5.80 MONOCYTES (test code = 62277493) 11.2 % MPV (test code = 66714473) 9.3 fL 7.5-12.5 ABSOLUTE EOSINOPHILS (test code = 40595363) 123 cells/uL 15-5 00 MCHC (test code = 93751341) 34.3 g/dL 32.0-36.0 RDW (test code = 58139537) 12.8 % 11.0-15.0 WHITE BLOOD CELL COUNT (test code = 4.9 Thousand/uL 3.8-10.8 74457551) BASOPHILS (test code = 15002922) 1.4 % MCV (test code = 29410362) 86.5 fL 80.0-100.0 LYMPHOCYTES (test code = 62419111) 39.1 % MCH (test code = 18664322) 29.7 pg 27.0-33.0 HEMOGLOBIN (test code = 04657498) 14.7 g/dL 13.2-17.1 HEMATOCRIT (test code = 77229088) 42.8 % 38.5-50.0 ABSOLUTE MONOCYTES (test code = 85224869) 549 cells/uL 200-95 0 ABSOLUTE BASOPHILS (test code = 13040330) 69 cells/uL 0-200 EOSINOPHILS (test code = 05440089) 2.5 % ABSOLUTE NEUTROPHILS (test code = 03427330) 2244 cells/uL 1500 -7800 ABSOLUTE LYMPHOCYTES (test code = 22094069) 1916 cells/uL 850- 3900 HEMOGLOBIN A1c WITH [id number] 09:29:00 Test Item Value Reference Range Comments HEMOGLOBIN A1c (test code = 47794453) 5.4 % of total Hgb <5.7 eAG (mmol/L) (test code = 51868035) 6.0 (calc) eAG (mg/dL) (test code = 17822665) 108 (calc) TISSUE [id number] 14:23:00 Test Item Value Reference Range Comments A SOURCE (test code = 99010307) Skin Biopsy, Left inner thigh CLINICAL INFORMATION (test code = L989, Z6829 75927258) [id number] 10:36:000.92LIPID PANEL WITH REFLEX TO DIRECT [id number] 10:36:00 Test Item Value Reference Range Comments LDL-CHOLESTEROL (test code = 56456432) 97 mg/dL (calc) HDL CHOLESTEROL (test code = 91564866) 63 mg/dL >40 TRIGLYCERIDES (test code = 58402344) 66 mg/dL <150 NON HDL CHOLESTEROL (test code = 32790436) 112 mg/dL (calc) <130 CHOLESTEROL, TOTAL (test code = 80192262) 175 mg/dL <200 CHOL/HDLC RATIO (test code = 91103345) 2.8 (calc) <5.0 COMPREHENSIVE METABOLIC [id number] 10:36:00 Test Item Value Reference Range Comments eGFR (test code = 75 mL/min/1.73m2 > OR = 60 64694648) PROTEIN, TOTAL (test code = 89969803) 7.4 g/dL 6.1-8.1 GLOBULIN (test code = 43168443) 3.3 g/dL (calc) 1.9-3.7 POTASSIUM (test code = 26448565) 4.8 mmol/L 3.5-5.3 eGFR NON-AFR. TURKISH (test code = 65 mL/min/1.73m2 > OR = 60 06776397) SODIUM (test code = 86583619) 138 mmol/L 135-146 CARBON DIOXIDE (test code = 88066983) 24 mmol/L 20-31 BUN/CREATININE RATIO (test code = NOT APPLICABLE (calc) 6-22 27696626) UREA NITROGEN (BUN) (test code = 12 mg/dL 7-25 92214369) ALBUMIN/GLOBULIN RATIO (test code = 1.2 (calc) 1.0-2.5 58447041) CHLORIDE (test code = 32091359) 105 mmol/L 98-110 CALCIUM (test code = 16757415) 9.3 mg/dL 8.6-10.3 ALT (test code = 95768518) 19 U/L 9-46 ALKALINE PHOSPHATASE (test code = 55 U/L 40-115 90097488) ALBUMIN (test code = 13940841) 4.1 g/dL 3.6-5.1 BILIRUBIN, TOTAL (test code = 1.0 mg/dL 0.2-1.2 59997927) CREATININE (test code = 08141358) 1.21 mg/dL 0.70-1.25 GLUCOSE (test code = 90040891) 93 mg/dL 65-99 AST (test code = 77227237) 26 U/L 10-35 PSA, [id number] 10:36:000.7CBC (H/H, RBC, INDICES, WBC, PLT)2017-10-03 10:36:00 Test Item Value Reference Range Comments HEMATOCRIT (test code = 69299822) 46.7 % 38.5-50.0 MPV (test code = 28298317) 9.2 fL 7.5-12.5 MCV (test code = 61168147) 87.3 fL 80.0-100.0 MCH (test code = 59276021) 29.2 pg 27.0-33.0 RDW (test code = 80966854) 12.5 % 11.0-15.0 RED BLOOD CELL COUNT (test code = 78451071) 5.35 Million/uL 4.20 -5.80 PLATELET COUNT (test code = 59496356) 238 Thousand/uL 140-400 MCHC (test code = 86411813) 33.4 g/dL 32.0-36.0 WHITE BLOOD CELL COUNT (test code = 4.7 Thousand/uL 3.8-10.8 22882208) HEMOGLOBIN (test code = 62078327) 15.6 g/dL 13.2-17.1 Lipid [id number] 11:27:00 Test Item Value Reference Range Comments LDL Cholesterol (Calc) (test code = 777428) 90 mg/dL <130 Triglyceride (test code = 304559) 53 mg/dL <150 Total Chol/HDL Ratio (test code = 927002) 2.7 Ratio <=5.0 Cholesterol (test code = 954330) 160 mg/dL 125-200 VLDL Cholesterol (Calc) (test code = 565716) 11 mg/dL <30 HDL Cholesterol (test code = 317580) 59 mg/dL >=40 Creatine Kinase (CK), [id number] 11:27:00 Test Item Value Reference Range Comments CK, Total (test code = 155415) 370 U/L 7-232 Sed Rate (ESR)2016-06-05 11:27:00 Test Item Value Reference Range Comments Sed Rate (ESR) (test code = 771509) 4 mm/hr 0-20 CBC with [id number] 11:27:00 Test Item Value Reference Range Comments Eos % (test code = 624961) 2 % 0-5 Smear Review (test code = Criteria for review not met 446920) Absolute [place] (test code = 0.5 K/uL 0.1-1.0 712162) RBC (test code = 808687) 5.14 MIL/uL 4.22-5.81 Hemoglobin (test code = 698209) 15.1 g/dL 13.0-17.0 Absolute Baso (test code = 0.0 K/uL 0.0-0.1 570997) RDW (test code = 516914) 13.4 % 11.5-15.5 [place] % (test code = 807417) 11 % 3-12 Absolute Eos (test code = 0.1 K/uL 0.0-0.7 745211) WBC (test code = 609043) 4.2 K/uL 4.0-10.5 MCV (test code = 018744) 89.3 fL 78.0-100.0 MPV (test code = 539371) 9.2 fL 8.6-12.4 MCH (test code = 881792) 29.4 pg 26.0-34.0 MCHC (test code = 332078) 32.9 g/dL 30.0-36.0 Absolute Gran (test code = 1.8 K/uL 1.7-7.7 043276) Lymph % (test code = 240120) 44 % 12-46 Baso % (test code = 231781) 1 % 0-1 Granulocyte % (test code = 42 % 43-77 441027) Platelet Count (test code = 250 K/uL 150-400 583462) Absolute Lymph (test code = 1.8 K/uL 0.7-4.0 339489) Hematocrit (test code = 345019) 45.9 % 39.0-52.0 [id number] 11:27:00 Test Item Value Reference Range Comments PSA (test code = 501433) 0.82 ng/mL <=4.00 C-Reactive Protein (CRP)2016-06-05 11:27:00 Test Item Value Reference Range Comments CRP (C-Reactive Protein) (test code = 253544) <0.5 mg/dL <0 .60 [id number] 11:27:00 Test Item Value Reference Range Comments TSH (test code = 278425) 0.738 uIU/mL 0.350-4.500 CMP with Estimated [id number] 11:27:00 Test Item Value Reference Range Comments Potassium (test code = 195889) 5.1 mmol/L 3.5-5.3 ALT/SGPT (test code = 830347) 22 U/L 9-46 Alkaline Phosphatase (test code = 230034) 60 U/L 40-115 Glucose (test code = 382745) 95 mg/dL 65-99 Albumin (test code = 537977) 4.3 g/dL 3.6-5.1 Est GFR, NonAfrican [place] Islander (test code = 601853) 72 mL/min >=60 Total Protein (test code = 704324) 7.2 g/dL 6.1-8.1 BUN (test code = 401609) 12 mg/dL 7-25 Sodium (test code = 174019) 140 mmol/L 135-146 Chloride (test code = 942587) 107 mmol/L 98-110 Est GFR, (test code = 733431) 83 mL/min > =60 Calcium (test code = 285868) 9.5 mg/dL 8.6-10.3 CO2 (test code = 305509) 27 mmol/L 20-31 Bilirubin, Total (test code = 881333) 0.6 mg/dL 0.2-1.2 AST/SGOT (test code = 438461) 26 U/L 10-35 Creatinine (test code = 154561) 1.12 mg/dL 0.70-1.33 Assessments Condition Name Status Diagnosis Date Treating Clinici an Knee pain Active 2020-01-24 08:23:48 Pain in right knee Active 2020-01-21 08:06:02 Stiffness of right knee Active 2020-01-21 08:06:02 Walking disability Active 2020-01-21 08:06:02 Pain in right knee Active 2020-01-17 08:44:49 Stiffness of right knee Active 2020-01-17 08:44:49 Walking disability Active 2020-01-17 08:44:49 Pain in right knee Active 2020-01-13 09:44:48 Stiffness of right knee Active 2020-01-13 09:44:48 Walking disability Active 2020-01-13 09:44:48 Pain in right knee Active 2019-12-29 11:01:59 Stiffness of right knee Active 2019-12-29 11:02:06 Walking disability Active 2019-12-29 11:02:12 Tear of medial meniscus of knee Active 2019-12-14 08:17 :22 Knee pain Active 2019-12-06 10:08:03 Tear of meniscus of knee Active 2019-12-06 10:08:25 Knee pain Active 2019-09-29 09:23:32 Tear of medial meniscus of knee Active 2019-09-29 10:07 :59 Radiculopathy, thoracic region Active Hesitancy of micturition Active Body mass index (BMI) 28.0-28.9, adult Active Right upper quadrant pain Active Low back pain Active Right upper quadrant pain Active Essential (primary) hypertension Active Mixed hyperlipidemia Active Essential (primary) hypertension Active Other intervertebral disc degeneration, Active lumbosacral region Dermatitis, unspecified Active Chronic rhinitis Active Essential (primary) hypertension Active Other intervertebral disc degeneration, Active lumbosacral region Mixed hyperlipidemia Active Iliotibial band syndrome, right leg Active Encounters Start End Encounter Admission Attending Care Care Encounter Date/Time Date/Time Type Type Clinicians Facility Department ID 2020-01-24 2020-01-24 [facility], [id number] 00:00:00 00:00:00 CAITLIN Ryder, kristen P.A. P.A. [id number] PA-C: [address] [address], Ph. 2020-01-21 2020-01-21 [facility], [id number] 00:00:00 00:00:00 KANDI Richards: kristen P.A. P.A. [id number] [facility] [address], [place] [address], Ph. 2020-01-17 2020-01-17 Angela [facility], [id number] 00:00:00 00:00:00 kristen Julien P.A. P.A. [id number] PT: [address] [facility] [address], [place] [address], Ph. 2020-01-13 2020-01-13 Angela Rdz [facility], [id number] 00:00:00 00:00:00 kristen Julien P.A. P.A. PT: [address] [facility] [address], [place] [address], Ph. 2019-12-29 2019-12-29 Angela Rdz [facility], [id number] 00:00:00 00:00:00 kristen Julien P.A. P.A. [id number] PT: [address] [facility] [address], [place] [address], Ph. 2019-12-20 2019-12-20 [facility], [id number] 00:00:00 00:00:00 CAITLIN Ryder ho P.A. P.A. [id number] [facility] [address] [facility] [place] [address], Ph. 2019-12-06 2019-12-06 [facility], 915 [id number] 00:00:00 00:00:00 CAITLIN Ryder ho, P.A. P.A. PA-C: [address] [facility] [address], [place] [address], Ph. 2019-09-29 2019-09-29 William [facility], [id number] 00:00:00 00:00:00 kristen Wilkes P.A. P.A. [id number] MD: [address] [facility] [address], [place] [address], Ph. 2019-09-15 2019-09-15 [facility], 91 [id number] 00:00:00 00:00:00 kristen Wilkes P.A. P.APalmira [id number] MD: [address] [facility] [address], [place] [address], Ph. 2018-12-14 2018-12-14 Outpatient [facility] 0 [id number] 10:00:00 10:00:00 Nicola Dexter???s [id number] and [id number] [facility] [id number] Clini 2018-10-19 2018-10-19 Outpatient [facility] B [id number] 09:00:00 09:00:00 Nicola Dexter [id number] s [id number] and [id number] [facility], 2017-12-29 2017-12-29 Outpatient [facility] 7 [id number] 13:00:00 13:00:00 Nicola Dexter [id number] s [id number] and [id number] [facility] [place] 2017-10-03 2017-10-03 Outpatient [facility] A [id number] 09:30:00 09:30:00 Nicola Dexter [id number] s [id number] and [id number] [facility] [place] Social History Smoking Status Start Date Stop Date Unknown If Ever Smoked Vital Signs Vital Name Observation Time Observation Value Comments Height 2020-01-24 00:00:00 71 [in_i] BMI (Body Mass Index) 2020-01-24 00:00:00 28.6 kg/m2 Body Weight 2020-01-24 00:00:00 205 [lb_av] Height 2019-09-15 00:00:00 71 [in_i] BMI (Body Mass Index) 2019-09-15 00:00:00 28.7 kg/m2 Body Weight 2019-09-15 00:00:00 206 [lb_av] Height 2019-12-20 00:00:00 71 [in_i] BMI (Body Mass Index) 2019-12-20 00:00:00 28.6 kg/m2 Body Weight 2019-12-20 00:00:00 205 [lb_av] Height 2019-12-06 00:00:00 71 [in_i] BMI (Body Mass Index) 2019-12-06 00:00:00 28.6 kg/m2 Body Weight 2019-12-06 00:00:00 205 [lb_av] Height 2019-09-29 00:00:00 71 [in_i] BMI (Body Mass Index) 2019-09-29 00:00:00 28.7 kg/m2 Body Weight 2019-09-29 00:00:00 206 [lb_av] Hospital Discharge Instructions 1. Knee pain knee pain or injury: care instructions 2. Tear of meniscus of knee aspirin 81 mg tablet,delayed release Parker 5 mg-325 mg tablet Discussion Note: None recorded.
[2020-05-25 09:02] LABS: ALKALINE PHOSPHATASE 73 U/L (38-126); ANION GAP 7 (5-19); ASPARTATE AMINO TRANSFERASE 36 U/L (17-59); BILIRUBIN,DIRECT 0.1 mg/dL (0.0-0.4); BILIRUBIN,TOTAL 0.7 mg/dL (0.2-1.3); BLOOD UREA NITROGEN 12 mg/dL (7-20); CALCIUM 9.5 mg/dL (8.4-10.2); CARBON DIOXIDE 27 mmol/L (22-30); CHLORIDE 104 mmol/L (98-107); CHOLESTEROL 176.17 mg/dL (0-200); CREATINE KINASE 272 U/L (55-170); GLUCOSE 99 mg/dL (75-110); POTASSIUM 4.1 mmol/L (3.6-5.0); TOTAL PROTEIN 7.4 g/dL (6.3-8.2); TRIGLYCERIDES 96 mg/dL (<150)
[2020-05-25 09:14] LABS: DIRECT LDL 93 mg/dL (<100)
== END ==
LOC: OD 07:52
PROVIDERS: ATTEND Internal Medicine Cardiovascular Disease
DX: R25.2 Cramp and spasm (principal); I10 Essential (primary) hypertension; E78.00 Pure hypercholesterolemia, unspecified; Z79.899 Other long term (current) drug therapy
CPT/HCPCS: 36415; 80048; 80061; 80076; 82550; 85652